=== PATIENT | male | born 1965 | race Caucasian/White ===

== ENCOUNTER 2025-05-28 20:21 | Emergency (ER) | payer OTHER ==
[~2025-05-28] VITALS: Ht 180.3 cm; Wt 88.5 kg
[2025-05-28] MEDS ORDERED: BENZ-13 PO (20:53)
[2025-05-28 21:34] VITALS: BP 122/70; TEMP 98.7; O2SAT 94
== END 2025-05-28 21:35 | disposition home or self-care (01) ==
LOC: ER 20:26
DX: J20.9 Acute bronchitis, unspecified (principal); J04.0 Acute laryngitis; I51.9 Heart disease, unspecified; F31.9 Bipolar disorder, unspecified; Z87.01 Personal history of pneumonia (recurrent)